=== PATIENT | female | born 1940 | race Caucasian/White ===

== ENCOUNTER 2020-11-08 12:39 | Emergency (ER) | payer MEDICARE, OTHER ==
[~2020-11-08 12:39] MED LIST: HYDROCHLOROTHIA25 MG PO; IMDUR ER TAB 3030 MG PO; LIPITOR TAB 1010 MG PO; NITROSTAT 0.40.4 MG SL; NORVASC 5 MG TAB5 MG PO; PERCOCET 5-3251 EACH PO; PLAVIX 75 MG TA75 MG PO
[2020-11-08 14:33] LABS: HEMOGLOBIN 14.9 gm/dl (12.3-15.3); RED BLOOD COUNT 4.81 M/UL (4.00-5.10); WHITE BLOOD COUNT 8.2 K/UL (4.5-11.0)
[2020-11-08 15:05] LABS: BUN/CREATININE RATIO 23 (0-10)
[2020-11-08] MEDS ORDERED: ZOFRAN ODT 4 MG4 MG PO (16:31)
[2020-11-08] MEDS ORDERED: NITROGLYCERIN0.4 MG SL (16:31)
== END 2020-11-08 16:42 | disposition home or self-care (01) ==
LOC: ER1 12:39
PROVIDERS: Family Medicine
DX: R07.9 Chest pain, unspecified (principal); J02.9 Acute pharyngitis, unspecified; R11.0 Nausea; Z20.822 Contact with and (suspected) exposure to COVID-19; I25.10 Atherosclerotic heart disease of native coronary artery without angina pectoris; I10 Essential (primary) hypertension; Z79.02 Long term (current) use of antithrombotics/antiplatelets; Z88.0 Allergy status to penicillin; Z88.6 Allergy status to analgesic agent; Z95.1 Presence of aortocoronary bypass graft
CPT/HCPCS: 0240U; 71045; 80053; 82550; 82553; 83874; 84484; 85025; 87081; 87880; 93005; 99285

== ENCOUNTER 2021-02-07 18:08 | Emergency (ER) | payer MEDICARE, OTHER ==
[~2021-02-07 18:08] MED LIST changes: +NITROGLYCERIN0.4 MG SL; +ZOFRAN ODT 4 MG4 MG PO
[2021-02-07 19:53] LABS: HEMOGLOBIN 14.8 gm/dl (12.3-15.3); RED BLOOD COUNT 4.67 M/UL (4.00-5.10); WHITE BLOOD COUNT 10.3 K/UL (4.5-11.0)
[2021-02-07 20:04] LABS: BUN/CREATININE RATIO 21 (0-10)
[2021-02-07] MEDS ORDERED: HYDROCODON-ACE1 EAC4 PO (21:08)
== END 2021-02-07 22:22 | disposition home or self-care (01) ==
LOC: ER1 18:08
PROVIDERS: Emergency Medicine
DX: R10.9 Unspecified abdominal pain (principal); R30.0 Dysuria; I10 Essential (primary) hypertension; I25.10 Atherosclerotic heart disease of native coronary artery without angina pectoris; J45.909 Unspecified asthma, uncomplicated; Z95.1 Presence of aortocoronary bypass graft
CPT/HCPCS: 71045; 80053; 81001; 83605; 83690; 83735; 83880; 84100; 85025; 85610; 85730; 87040; 87086; 93005; 96374; 96375; 99284; J1885; J2270; J2405; Q9967

== ENCOUNTER → 2021-05-31 | Outpatient (CLI) | payer MEDICARE, OTHER ==
[~2021-05-31] MED LIST changes: +HYDROCODON-ACE1 EAC4 PO
== END ==
LOC: CT 09:45
DX: R09.89 Other specified symptoms and signs involving the circulatory and respiratory systems (principal); I70.8 Atherosclerosis of other arteries; I73.9 Peripheral vascular disease, unspecified
CPT/HCPCS: 36415; 70498; 82565; 84520; Q9967

== ENCOUNTER → 2021-08-08 | Outpatient (CLI) | payer MEDICARE, OTHER ==
[~2021-08-08] VITALS: Ht 154.9 cm; Wt 69.9 kg
== END ==
LOC: OPSV 12:01
DX: M81.0 Age-related osteoporosis without current pathological fracture (principal)
CPT/HCPCS: 96372

== ENCOUNTER → 2021-10-03 | Outpatient (CLI) | payer MEDICARE, OTHER | LOC: HEART 5 08:38 | DX: I25.10 Atherosclerotic heart disease of native coronary artery without angina pectoris (principal); I49.5 Sick sinus syndrome; I11.9 Hypertensive heart disease without heart failure; I08.2 Rheumatic disorders of both aortic and tricuspid valves; Z95.0 Presence of cardiac pacemaker | CPT/HCPCS: 93306 ==

== ENCOUNTER → 2021-10-05 | Outpatient (CLI) | payer MEDICARE, OTHER ==
[2021-10-05 12:50] LABS: RED BLOOD COUNT 4.36 M/UL (4.00-5.10); WHITE BLOOD COUNT 6.8 K/UL (4.5-11.0)
[2021-10-05 13:11] LABS: BUN/CREATININE RATIO 18 (0-10)
== END ==
LOC: LAB 12:01
PROVIDERS: Internal Medicine Cardiovascular Disease
DX: Z45.010 Encounter for checking and testing of cardiac pacemaker pulse generator [battery] (principal); I49.5 Sick sinus syndrome; I10 Essential (primary) hypertension; J84.9 Interstitial pulmonary disease, unspecified
CPT/HCPCS: 36415; 71046; 80048; 85025

== ENCOUNTER → 2021-10-10 | Outpatient (CLI) | payer MEDICARE, OTHER ==
[~2021-10-10] MED LIST changes: +8 HOUR PAIN RE650 MG PO; +CALCIUM 600 +1 EA13 PO; +CLINDAMYCIN HC300 MG PO; +DILTIAZEM ER180 M2 PO; +FLONASE ALLER15.8 ML; +LEVOFLOXACIN500 MG PO; +LISINOPRIL40 MG PO; +PROAIR DIGIHAL90 MCG INH; +PROTONIX 40 MG40 M1 PO; +SYMBICORT 160-1 INHA INH
== END ==
LOC: CATH 06:46
DX: Z45.010 Encounter for checking and testing of cardiac pacemaker pulse generator [battery] (principal); I49.5 Sick sinus syndrome; I25.10 Atherosclerotic heart disease of native coronary artery without angina pectoris; I73.9 Peripheral vascular disease, unspecified; I10 Essential (primary) hypertension; E78.5 Hyperlipidemia, unspecified; I44.30 Unspecified atrioventricular block; K21.9 Gastro-esophageal reflux disease without esophagitis; E11.9 Type 2 diabetes mellitus without complications; Z95.1 Presence of aortocoronary bypass graft; Z87.891 Personal history of nicotine dependence; Z79.1 Long term (current) use of non-steroidal anti-inflammatories (NSAID); Z79.51 Long term (current) use of inhaled steroids; Z79.811 Long term (current) use of aromatase inhibitors
CPT/HCPCS: 33213; 99152; 99153; C1785; J1200; J2250; J3010; J3370; J7040; J7050; U0002

== ENCOUNTER 2022-01-17 20:30 | Inpatient (IN) | payer MEDICARE, OTHER ==
[~2022-01-17] VITALS: Ht 152.4 cm; Wt 71.2 kg
[~2022-01-17 20:30] MED LIST changes: -CALCIUM 600 +1 EA13 PO; +CALCIUM 600 MG1 EAC1 PO; +DILTIAZEM 24HR240 M1 PO; -DILTIAZEM ER180 M2 PO; -IMDUR ER TAB 3030 MG PO; +ISOSORBIDE MONO60 MG PO; -LIPITOR TAB 1010 MG PO; +LIPITOR40 MG PO; -PROAIR DIGIHAL90 MCG INH; +PROAIR HFA8.5 GM INH
[2022-01-17 21:00] LABS: HEMOGLOBIN 12.6 gm/dl (12.3-15.3); RED BLOOD COUNT 3.96 M/UL (4.00-5.10); WHITE BLOOD COUNT 16.4 K/UL (4.5-11.0)
[2022-01-18] MEDS ORDERED: METHOCARBAMOL500 MG PO (11:02)
--- NOTE | 2022-01-18 12:46 | NUR ---
PT STILL HAS SHEET FROM THE ER STRETCHER UNDER HER, PT IS AWARE IT COULD CAUSE BREAKDOWN BUT IS IN TO MUCH PAIN TO ALLOW US TO REMOVE IT. GAVE PT MORPHINE FOR PAIN AND PT STATED IT HELPED BUT STILL REFUSES TO ALLOW US TO REMOVE SHEETS
[2022-01-19 06:36] LABS: WHITE BLOOD COUNT 15.7 K/UL (4.5-11.0)
[2022-01-19 06:46] LABS: RED BLOOD COUNT 3.52 M/UL (4.00-5.10)
[2022-01-19 07:06] LABS: BUN/CREATININE RATIO 32 (0-10)
[2022-01-20 02:04] LABS: RED BLOOD COUNT 3.13 M/UL (4.00-5.10); WHITE BLOOD COUNT 12.5 K/UL (4.5-11.0)
[2022-01-20 02:24] LABS: BUN/CREATININE RATIO 32 (0-10)
[2022-01-21 02:34] LABS: HEMOGLOBIN 9.6 gm/dl (12.3-15.3); RED BLOOD COUNT 3.06 M/UL (4.00-5.10); WHITE BLOOD COUNT 13.3 K/UL (4.5-11.0)
[2022-01-21 02:52] LABS: BUN/CREATININE RATIO 30 (0-10)
[2022-01-22 03:11] LABS: RED BLOOD COUNT 2.85 M/UL (4.00-5.10); WHITE BLOOD COUNT 14.5 K/UL (4.5-11.0)
[2022-01-22 03:36] LABS: BUN/CREATININE RATIO 30 (0-10)
[2022-01-23 03:11] LABS: HEMOGLOBIN 8.5 gm/dl (12.3-15.3); RED BLOOD COUNT 2.72 M/UL (4.00-5.10)
[2022-01-23 03:36] LABS: BUN/CREATININE RATIO 25 (0-10)
[2022-01-24 02:53] LABS: HEMOGLOBIN 8.7 gm/dl (12.3-15.3); RED BLOOD COUNT 2.77 M/UL (4.00-5.10); WHITE BLOOD COUNT 11.6 K/UL (4.5-11.0)
[2022-01-24 04:00] LABS: BUN/CREATININE RATIO 25 (0-10)
[2022-01-26 04:33] LABS: HEMOGLOBIN 9.4 gm/dl (12.3-15.3); RED BLOOD COUNT 2.92 M/UL (4.00-5.10); WHITE BLOOD COUNT 11.7 K/UL (4.5-11.0)
[2022-01-26 05:09] LABS: BUN/CREATININE RATIO 40 (0-10)
--- NOTE | 2022-01-27 18:24 | NUR ---
1500 Patient not tolerating tube feeding well. Will not allow it to go any more than 10ml/hr. States she feels like its coming back up in her throat. No residual noted at this time. Patient requested tube feeding be turned off. Dr Recinos informed. New order entered for IV fluids.
[2022-01-28 03:20] LABS: BUN/CREATININE RATIO 30 (0-10)
[2022-01-30 04:25] LABS: BUN/CREATININE RATIO 22 (0-10)
[2022-01-30 04:38] LABS: HEMOGLOBIN 9.2 gm/dl (12.3-15.3); RED BLOOD COUNT 3.01 M/UL (4.00-5.10); WHITE BLOOD COUNT 9.7 K/UL (4.5-11.0)
[2022-01-30] MEDS ORDERED: PROTONIX 40 MG40 MG PEG (14:43)
[2022-01-30] MEDS ORDERED: DULERA 200 MCG8.8 GM INH (14:43)
[2022-01-30] MEDS ORDERED: ACETAMINOPHEN-1 EAC1 PO (14:43)
[2022-01-30] MEDS ORDERED: CHRONULAC20 GM/30 M GT (14:43)
[2022-01-30] MEDS ORDERED: ACETAMINOPHEN325 MG PO (14:43)
[2022-01-30] MEDS ORDERED: LISINOPRIL5 MG PO (14:45)
[2022-01-31 10:17] LABS: HEMOGLOBIN 9.4 gm/dl (12.3-15.3); RED BLOOD COUNT 3.05 M/UL (4.00-5.10); WHITE BLOOD COUNT 8.4 K/UL (4.5-11.0)
[2022-01-31 10:48] LABS: BUN/CREATININE RATIO 22 (0-10)
[2022-01-31] MEDS ORDERED: ATORVASTATIN CA20 MG PO (12:29)
[2022-01-31] MEDS ORDERED: ERYPED 200200 MG/5 M PEG (12:29)
[2022-01-31] MEDS ORDERED: LOPRESSOR 25 MG25 MG PO (12:29)
[2022-01-31] MEDS ORDERED: CLOPIDOGREL75 MG PO (12:29)
[2022-01-31] MEDS ORDERED: IPRAT-ALBUT 0.5-3 ML NEB (12:29)
[2022-01-31] MEDS ORDERED: ISORDIL TAB 2020 MG GT (12:29)
== END 2022-01-31 12:30 | DRG 481 ==
LOC: ER1 20:30 → CDU 01-18 00:55 → M/S 01-18 00:55
PROVIDERS: Family Medicine; Internal Medicine; Internal Medicine Infectious Disease; Orthopaedic Surgery; ADMIT Internal Medicine
PROC: 0QS706Z Reposition Left Upper Femur with Intramedullary Internal Fixation Device, Open Approach (ICD-10-PCS; principal; 2022-01-19 11:15)
DX: S72.142A Displaced intertrochanteric fracture of left femur, initial encounter for closed fracture (principal); D62 Acute posthemorrhagic anemia; K55.1 Chronic vascular disorders of intestine; Z20.822 Contact with and (suspected) exposure to COVID-19; E83.39 Other disorders of phosphorus metabolism; R13.10 Dysphagia, unspecified; K44.9 Diaphragmatic hernia without obstruction or gangrene; I25.10 Atherosclerotic heart disease of native coronary artery without angina pectoris; I10 Essential (primary) hypertension; E78.5 Hyperlipidemia, unspecified; K31.84 Gastroparesis; J45.909 Unspecified asthma, uncomplicated; W11.XXXA Fall on and from ladder, initial encounter; Z95.1 Presence of aortocoronary bypass graft; Z95.0 Presence of cardiac pacemaker; Z87.891 Personal history of nicotine dependence; Z90.49 Acquired absence of other specified parts of digestive tract; Z98.890 Other specified postprocedural states; Z88.0 Allergy status to penicillin; I77.1 Stricture of artery
CPT/HCPCS: 36415; 70450; 71045; 72192; 73502; 73552; 73630; 74018; 76000; 80048; 80053; 81001; 82550; 82553; 82607; 82728; 82746; 83540; 83550; 83735; 84100; 84484; 85025; 85610; 86850; 86900; 86901; 92610; 93005; 94640; 94664; 94760; 96374; 96375; 96376; 97110; 97110-GP-CQ; 97116; 97116-GP-CQ; 97162; 97166; 97530; 97530-GP-CQ; 99285; C1713; J0690; J1100; J1650; J1956; J2001; J2270; J2405; J2704; J3010; J3480; J7030; J7040; J7120; Q9967; U0002